=== PATIENT | female | born 1955 | race Caucasian/White ===

== ENCOUNTER 2017-01-24 13:53 | Emergency (ER) | payer OTHER ==
[~2017-01-24 13:53] MED LIST: ASPIRIN81 M2 PO; CHEWABLE ASPIRI81 MG PO; DIFLUCAN PO; HYDROCODON-ACE1 EAC9 PO; JANUVIA PO; LEVO-T100 MCG; LEVOTHROID100 MC1 PO; LINZESS145 MCG PO; LINZESS290 MCG PO; LISINOPRIL PO; LISINOPRIL20 MG PO; MIRALAX17 GM PO; OMEPRAZOLE40 M1 PO; PAXIL10 MG PO; PRAVASTATIN SOD20 MG PO; PRILOSEC PO; RANITIDINE HCL150 M1 PO; TRIAMTERENE-HC1 EACH PO
[2017-01-24] MEDS ORDERED: TRIAMTERENE-HC1 EACH PO (13:54)
[2017-01-24] MEDS ORDERED: PRAVACHOL PO (13:54)
[2017-01-24] MEDS ORDERED: JANUVIA PO (13:54)
== END 2017-01-24 14:57 | disposition home or self-care (01) ==
LOC: SED 13:53
DX: S01.85XA Open bite of other part of head, initial encounter (principal); E11.9 Type 2 diabetes mellitus without complications; I10 Essential (primary) hypertension; Z23 Encounter for immunization; Z79.899 Other long term (current) drug therapy; W61.01XA Bitten by parrot, initial encounter; Y92.009 Unspecified place in unspecified non-institutional (private) residence as the place of occurrence of the external cause
CPT/HCPCS: 90471; 90715; 99283

== ENCOUNTER 2017-03-19 11:14 | Emergency (ER) | payer OTHER ==
--- NOTE | ~2017-03-19 | CT2 ---
[facility] A Service of [facility] RADIOLOGY TEXT RESULTS PATIENT: TERI VICTORIA LOCATION: SED : 53 UNIT #: [id number] AGE: [address]: Rene Burnett MD SEX: F ORDER DR: [id number] [place] [id number] E MR#: [id number] Acc #: [id number] NAME: TERI VICTORIA. : 1955 SEX: F STUDY DATE/TIME: 03/19/2017 13:41 UNIT: SED ROOM: STUDY DESCRIPTION: CT Abd and Pelv W Cont Attending Physician: Rene Burnett M.D. Referring Physician: Rene Burnett M.D. Ordering Physician: Rene Burnett M.D. Primary Care Physician: Arian Duarte M.D. MEDICAL IMAGING REPORT This report is preliminary unless electronic signature is present. EXAM CT abdomen and pelvis 03/19 INDICATION Abdominal pain, which is periumbilical. Symptoms started this morning. TECHNIQUE Axial images were obtained through the abdomen and pelvis following IV contrast administration. Multiplanar reformats were obtained. This CT exam was performed with one or more of the following radiation dose reduction techniques: automatic exposure control, adjustment of mA and/or kV according to patient size, and iterative reconstruction. COMPARISON STUDIES Comparison made with 11/13/2014 FINDINGS ABDOMEN: Lung bases are clear. Gallbladder is surgically absent. No biliary obstruction. Solid organs are normal. The patient is status post gastric bypass. Unopacified GI tract is otherwise normal. No free fluid or adenopathy is seen. PELVIS: Urinary bladder is normal. Uterus is surgically absent. No free fluid is seen. The appendix is normal, as is the remainder of the unopacified GI tract. The patient is status post ventral wall hernia repair. There is a minimal amount of abdominal fat extending through a defect. It is relatively stable from the prior study except that the previously seen fluid is no longer visible. 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 IMPRESSION [facility] A Service of [facility] RADIOLOGY TEXT RESULTS PATIENT: TERI VICTORIA LOCATION: [facility] : 53 UNIT #: [id number] AGE: [address]: Rene Burnett MD SEX: F ORDER DR: 1. No acute findings in the abdomen or pelvis. 2. Gastric bypass. The unopacified GI tract including the appendix is otherwise normal. 3. Hysterectomy and cholecystectomy. 4. Ventral wall hernia repair. There is a tiny fat containing recurrent umbilical hernia, which is probably not significantly changed from 11/13/2014. Dictated by... Lorne Emanuel Jr., M.D. THIS IS AN ELECTRONICALLY VERIFIED REPORT Lorne Emanuel Jr., M.D. at 03/20/2017 6:10 AM Jonny TD: 03/19/2017 16:33 JOB #: [id number] MEDICAL IMAGING REPORT Page 1 of 1
[~2017-03-19 11:14] MED LIST changes: +PRAVACHOL PO
[2017-03-19 12:13] LABS: BASOPHIL# 0.1 X10e3 (0-0.3); BASOPHIL% 0.7 % (0-2.5); DIFF IND NO; EOSINOPHIL# 0.2 X10e3 (0-0.7); EOSINOPHIL% 2.9 % (0.0-7.0); HEMATOCRIT 42.3 % (35.0-45.0); HEMOGLOBIN 14.5 gm/dL (12.0-16.0); LYMPHOCYTE% 23.8 % (17.0-45.0); MEAN CELL VOLUME 84.4 FL (83-96); MEAN CORPUSCULAR HEMOGLOBIN 28.8 PG (28-34); MEAN CORPUSCULAR HGB CONC 34.2 g/dL (30-36); MONOCYTE# 0.5 X10e3 (0-1.0); MONOCYTE% 5.9 % (3.0-12.0); NEUTROPHIL# 5.5 X10e3 (1.5-7.1); NEUTROPHIL% 66.7 % (40-75); PLATELET COUNT 337 X10e3 (140-420); RED BLOOD COUNT 5.01 X10e (3.90-5.30); WHITE BLOOD COUNT 8.2 X10e3 (4.0-10.5)
[2017-03-19 12:14] LABS: URINE SOURCE CLEAN CATCH
[2017-03-19 12:17] LABS: URINE APPEARANCE CLEAR; URINE BILIRUBIN NEG (NEG); URINE BLOOD NEG (NEG); URINE COLOR YELLOW; URINE GLUCOSE NEG (NORM); URINE KETONE NEG (NEG); URINE LEUKOCYTE ESTERASE NEG (NEG); URINE NITRATE NEG (NEG); URINE PH 6.5 (5-8); URINE PROTEIN NEG (NEG); URINE UROBILINOGEN 0.2 MG/DL (NORM)
[2017-03-19 12:19] LABS: MICRO INDICATED? NO
[2017-03-19 12:34] LABS: ALBUMIN SERUM 3.7 g/dL (3.5-5.0); BILIRUBIN, DIRECT 0.1 mg/dL (0.0-0.2); BILIRUBIN,INDIRECT 0.4 mg/dL (0.0-0.9); BILIRUBIN,TOTAL 0.5 mg/dL (0.2-2.0); BUN/CREATININE RATIO 16.25; CALCIUM SERUM 8.9 mg/dL (8.4-10.2); CREATININE SERUM 0.8 mg/dL (0.6-1.4); GLOM FILT RATE Estimated 79.1 mL/min (>60); POTASSIUM 3.1 mmol/L (3.5-5.1); PROTEIN TOTAL SERUM 7.2 g/dL (6.0-8.3)
== END 2017-03-19 15:04 | disposition home or self-care (01) ==
LOC: SED 11:14
PROVIDERS: Emergency Medicine
DX: K29.70 Gastritis, unspecified, without bleeding (principal); E87.6 Hypokalemia; K21.9 Gastro-esophageal reflux disease without esophagitis; I10 Essential (primary) hypertension; E11.9 Type 2 diabetes mellitus without complications; E03.9 Hypothyroidism, unspecified; Z90.710 Acquired absence of both cervix and uterus; Z90.49 Acquired absence of other specified parts of digestive tract; Z79.82 Long term (current) use of aspirin; Z79.899 Other long term (current) drug therapy
CPT/HCPCS: 36415; 74177; 80048; 80076; 81003; 83690; 84703; 85025; 96374; 96375; 99284; J2405; Q9967

== ENCOUNTER → 2017-05-27 | Outpatient (CLI) | payer OTHER ==
--- NOTE | ~2017-05-27 | ST ---
Unit #: [id number] #: [id number] Patient: TERI VICTORIA [id number] [address] [address] [id number] O MR#: [id number] NAME: TERI VICTORIA : 1955 SEX: F STUDY DATE/TIME: UNIT: [facility] ROOM: STUDY DESCRIPTION: Lexiscan cardiolite stress Attending Physician: Cody Pelayo M.D. Referring Physician: Cody Pelayo M.D. Primary Care Physician: Arian Duarte M.D. CARDIOLOGY REPORT EXAM Lexiscan Cardiolite stress test. FINDINGS Baseline EKG shows normal sinus rhythm with a rate of 74 BPM with a premature ventricular complex. There is low voltage QRS in the inferior leads, as well as V3 through V6. Lexiscan was injected immediately, followed by Cardiolite. The patient had no complaints of chest pain, palpitations, or dizziness. EKG during Lexiscan showed no ST-T wave abnormalities. Was noted for frequent premature ventricular complexes prior to the exam, as well as a bright bigeminal PVCs. This continued throughout the exam. There was an isolated couplet. Again the patient was unaware of palpitations. Maximum blood pressure response 136/75 mmHg. In recovery, blood pressure was 122/79 mmHg. Please correlate these results with nuclear images. Dictated by... Asim Mcgee A.P.R.N. for Anderson Hendrickson/karen TD: 05/27/2017 11:38 JOB #: [id number] CARDIOLOGY REPORT Page 1 of 1 X Asim Mcgee APRN CARDIOLOGY REPORT
--- NOTE | ~2017-05-27 | TH ---
Unit #: [id number] #: [id number] Patient: TERI VICTORIA [id number] [address] [address] [id number] O MR#: [id number] NAME: TERI VICTORIA : 1955 SEX: F STUDY DATE/TIME: 05/27/2017 UNIT: [facility] ROOM: STUDY DESCRIPTION: Attending Physician: Cody Pelayo M.D. Referring Physician: Cody Pelayo M.D. Primary Care Physician: Arian Duarte M.D. CARDIOLOGY REPORT EXAM Lexiscan Cardiolite stress test, nuclear portion. PROCEDURE Using technetium 99m labeled Cardiolite, rest and stress SPECT images were obtained. Multiple SPECT images were obtained in various views including horizontal and vertical long axis and short axis views of the left ventricle. Images were obtained by gated SPECT method. The patient was administered 11.28 mCi of Cardiolite at rest. Patient was administered 33.3 mCi of Cardiolite after Lexiscan infusion was completed. On the stress images, there is a small area of moderate decreased isotope activity involving the lateral wall. There is another small area of mild decreased isotope activity involving the anteroseptal wall. The rest images show a small area of mild decreased isotope activity anteroseptally. Comparing rest and stress images, there is a small area of stress-induced ischemia involving the lateral wall of the left ventricle. The left ventricular ejection fraction is calculated to be 55%. There is no focal wall motion abnormality seen. The technical quality of the images is extremely poor because of patient's large body habitus. CONCLUSION 1. Suspicion for a small area of stress-induced ischemia involving the lateral wall of the left ventricle. 2. There is a small area of predominantly fixed defect seen in the anteroseptal wall suspicious for a soft tissue artifact. 3. The left ventricular ejection fraction is calculated to be 55%. 4. There is no focal wall motion abnormality seen. 5. Technically extremely limited study due to patient's body habitus. Clinical correlation is requested. Dictated by..Anderson Maurer TD: 05/27/2017 11:27 JOB #: [id number] Unit #: [id number] #: [id number] Patient: TERI VICTORIA CC: Cody Pelayo M.D. CARDIOLOGY REPORT Page 1 of 1 X Bettye Lin MD <ELECTRONICALLY SIGNED> 07/09/17 1524 CARDIOLOGY REPORT
== END | disposition home or self-care (01) ==
LOC: CNUC 06:18
DX: I49.8 Other specified cardiac arrhythmias (principal)
CPT/HCPCS: 78452; 82947; 93017; A9500; J2785